=== PATIENT | male | born 1960 ===

== ENCOUNTER 2018-01-11 19:35 | Inpatient (IN) | payer MEDICARE, OTHER ==
[~2018-01-11] VITALS: Ht 172.7 cm; Wt 98.0 kg
[2018-01-11] MEDS ORDERED: LORA1TAB PO (19:53)
[2018-01-11] MEDS ORDERED: CARB100T5 PO (19:53)
--- NOTE | 2018-01-11 20:53 | NUR ---
Pt. admitted to [facility], under care of Dr. Fermin Belongs List completed
[2018-01-11] MEDS ORDERED: ACETAMINOPHEN 325 MG TABLET PO PRN (21:30)
[2018-01-11] MEDS ORDERED: TEMAZEPAM 7.5 MG CAPSULE PO PRN (21:30)
[2018-01-11] MEDS ORDERED: MAG HYDROX/AL HYDROX/SIMETH 30 ML LIQUID UDC PO PRN (21:30)
[2018-01-11] MEDS ORDERED: MAGNESIUM HYDROXIDE 30 ML LIQUID UDC PO PRN (21:30)
[2018-01-11] MEDS ORDERED: LORAZEPAM 1 MG TABLET PO PRN (21:30)
[2018-01-11 21:35] VITALS: BP 148/87
--- NOTE | 2018-01-11 22:24 | NUR ---
[facility]PS: Admitted to unit a 57 yr.old male under the care and supervision of /MAXIM Escamilla in stable condition. Pt.is on a 72 hour hold for GD. Pt. used marijuana recently due to stress and became paranoid with fixed delusion of threatening people around him. Pt.unable to return to his previous sober living because of paranoid delusions. Pt.is AO x4. Calm,cooperative during admission interview. Personal belongings/skin assessment completed. Contracts for safety at this time. No agitation noted. Will monitor behavior.
[2018-01-12 07:30] VITALS: BP 126/82
[2018-01-12] MEDS: CARBAMAZEPINE 100 MG TAB.CHEW PO SCH (09:49)
--- NOTE | 2018-01-12 12:16 | NUR ---
Initial Discharge Note: Patient is AxOx4 and able to participate in his care. Patient states he lives at [facility] [[address] [place] [id number]; ] and would like to return there when ready for discharge. case worker called and spoke with To [[phone]], sober manager leadership development, who states that patient is accepted back when ready for discharge. Per To, he may be able to provide transportation depending on day of discharge. case worker will call patient son, Brennon [[phone]], to speak about patient progress and discharge plan. case worker will continue to collaborate with patient and MD on a safe and proper discharge.
[2018-01-12 15:02] VITALS: BP 122/74
[2018-01-12] MEDS: OLANZAPINE 5 MG TABLET PO SCH (20:20)
[2018-01-12] MEDS: ATORVASTATIN 10 MG TABLET PO SCH (20:20)
[2018-01-12] MEDS: TRAZODONE 50 MG TABLET PO SCH (20:20)
[2018-01-12 20:42] VITALS: BP 126/82
[2018-01-12] MEDS ORDERED: OLANZAPINE 5 MG TABLET PO SCH (21:00)
[2018-01-13 07:18] LABS: BASOPHILS # (AUTO) 0.1 K/uL (0.0-8.0); BASOPHILS % (AUTO) 0.8 % (0.0-2.0); EOSINOPHILS # (AUTO) 0.3 K/uL (0.0-0.7); EOSINOPHILS % (AUTO) 3.1 % (0.0-7.0); HEMATOCRIT 43.7 % (36.7-47.1); LYMPHOCYTES # (AUTO) 1.2 K/uL (20.0-40.0); LYMPHOCYTES % (AUTO) 13.1 % (20.5-51.5); MEAN CORPUSCULAR HEMOGLOBIN 33.5 uug (23.8-33.4); MEAN CORPUSCULAR HGB CONC 34 g/dL (32.5-36.3); MEAN CORPUSCULAR VOLUME 97.6 fL (73.0-96.2); MONOCYTES # (AUTO) 0.6 K/uL (2.0-10.0); MONOCYTES % (AUTO) 6.6 % (0.0-11.0); NEUTROPHILS # (AUTO) 6.9 K/uL (1.8-8.9); NEUTROPHILS % (AUTO) 76.4 % (38.5-71.5); PLATELET COUNT (AUTO) 216 K/uL (152-348); RED BLOOD CELL COUNT(AUTO) 4.48 MIL/uL (4.06-5.63)
[2018-01-13 07:32] LABS: CREATININE 0.8 mg/dL (0.6-1.3); PHOSPHOROUS 3.1 mg/dL (2.5-4.9); POTASSIUM 3.6 mmol/L (3.5-5.1)
[2018-01-13] MEDS: CARBAMAZEPINE 100 MG TAB.CHEW PO SCH (08:07)
[2018-01-13] MEDS: OLANZAPINE 5 MG TABLET PO SCH ×2 (08:07→20:05)
[2018-01-13 08:30] VITALS: BP 129/69
[2018-01-13 16:00] VITALS: BP 113/76
[2018-01-13 20:00] VITALS: BP 112/71
[2018-01-13] MEDS: ATORVASTATIN 10 MG TABLET PO SCH (20:04)
[2018-01-13] MEDS: TRAZODONE 50 MG TABLET PO SCH (20:04)
[2018-01-14 07:30] VITALS: BP 111/74
[2018-01-14] MEDS: OLANZAPINE 5 MG TABLET PO SCH ×2 (08:42→21:09)
[2018-01-14] MEDS: CARBAMAZEPINE 100 MG TAB.CHEW PO SCH (08:42)
--- NOTE | 2018-01-14 10:35 | NUR ---
1030 recheck HR- 60/min
[2018-01-14 16:00] VITALS: BP 130/73
[2018-01-14 20:25] VITALS: BP 130/83
[2018-01-14] MEDS: ATORVASTATIN 10 MG TABLET PO SCH (21:09)
[2018-01-14] MEDS: TRAZODONE 100 MG TABLET PO SCH (21:09)
--- NOTE | 2018-01-15 05:44 | NUR ---
Pt cooperated with taking meds, expressed to freelance writer that he was paranoid upon admittance to hospital but that he feels better now. Pt was calm, expressed that he would like to be d/c.
[2018-01-15 07:30] VITALS: BP 131/78
[2018-01-15] MEDS: OLANZAPINE 5 MG TABLET PO SCH ×2 (08:32→20:31)
[2018-01-15] MEDS: CARBAMAZEPINE 100 MG TAB.CHEW PO SCH (08:32)
--- NOTE | 2018-01-15 11:08 | NUR ---
Firearms Report: ticket worker completed and submitted a [id number] certification for grave disability.
[2018-01-15 16:00] VITALS: BP 115/67
[2018-01-15] MEDS: TRAZODONE 100 MG TABLET PO SCH (20:31)
[2018-01-15] MEDS: ATORVASTATIN 10 MG TABLET PO SCH (20:31)
[2018-01-15 21:02] VITALS: BP 126/83
--- NOTE | 2018-01-16 06:04 | NUR ---
PT SLEPT THROUGHOUT THE SHIFT. PT SHOWS NO SIGNS OF DISTRESS. PT DENIES SUICIDAL IDEATION. COOPERATIVE AND COMPLIANT WITH CARE. PRESCRIBED MEDICATION GIVEN AND PT TOLERATED IT WELL. WILL ENDORSE TO INCOMING NURSE FOR CONTINUITY OF CARE.
[2018-01-16 07:30] VITALS: BP 127/70
[2018-01-16] MEDS: OLANZAPINE 5 MG TABLET PO SCH (08:54)
[2018-01-16] MEDS: CARBAMAZEPINE 100 MG TAB.CHEW PO SCH (08:55)
--- NOTE | 2018-01-16 11:09 | NUR ---
Discharge Note: Patient will be discharged to [facility] [[address] [place] [address]; ] and transportation will be provided taxi at 12:30pm. Please arrange taxi transportation for this patient. Confirmation of acceptance at [facility] was provided by To [[phone]], mill house supervisor, at the [facility] who states he is ready to accept the patient. Patient is aware that he is assigned to room #3, bottom bunk. Patients son, Brennon [[phone]], was called and notified of discharge plan and agreeable. Patient is alert and oriented x4 and denies any SI/HI. Patient was briefed on discharge plan. Patient will follow-up with primary care physician, Dr. Saurabh Daley [[address] [place] [address]; ]. Continuing discharge packet has been sent to MD office. Patient currently does not have a psychiatrist so patient has been provided with a list of Medicare accepting psychiatrists in the [place] area. Patient was also provided with a brief substance abuse intervention focused on patient marijuana consumption that led to current psychiatric hospitalization. Patient was provided with substance abuse resources including [facility] [[phone]], [facility] [[phone]], and [facility] [[phone], and [facility] [ ]. Patient was given outpatient mental health resources including [facility] [ ], Il[facility] Bruner [ ], and National Suicide Prevention [facility]eline [ ].
--- NOTE | 2018-01-16 14:00 | NUR ---
PATIENT IS BEING DISCHARGED TO [facility]. PT IS ALERT AND ORIENTED X 3. DISCHARGE INSTRUCTIONS GIVEN, PT VERBALIZES UNDERSTANDING, INCLUDING THE NEED TO FOLLOW UP WITH A PSYCHIATRIST. VS ARE STABLE. PT DENIES S.I, CONTRACTS FOR SAFETY. ALL BELONGINGS RETURNED.
== END 2018-01-16 14:00 | disposition home or self-care (01) | DRG 885 ==
LOC: ER 19:40 → GPS 20:45
PROVIDERS: ADMIT Psychiatry & Neurology Psychiatry; ATTEND Hospitalist
DX: F25.9 Schizoaffective disorder, unspecified (principal); G40.909 Epilepsy, unspecified, not intractable, without status epilepticus; Z87.891 Personal history of nicotine dependence; E66.9 Obesity, unspecified; Z68.32 Body mass index [BMI] 32.0-32.9, adult; E78.5 Hyperlipidemia, unspecified; R94.31 Abnormal electrocardiogram [ECG] [EKG]; F41.9 Anxiety disorder, unspecified; Z91.5 Personal history of self-harm; Z79.899 Other long term (current) drug therapy
CPT/HCPCS: 36415; 71045; 83735; 84100; 85025; A4663; J8499